=== PATIENT | female | born 1965 ===

== ENCOUNTER 2025-04-10 08:15 | Inpatient (IN) | payer OTHER ==
[~2025-04-10] VITALS: Ht 162.6 cm; Wt 74.4 kg
[2025-04-10 11:20] LABS: BASO % 0.5 % (0.1-1.2); EOS # 0.07 (0.04-0.54); EOS % 1.1 % (0.7-7.0); LYMPH # 1.49 (1.18-3.74); LYMPH % 23.8 % (19.3-53.1); MEAN PLATELET VOLUME 11.80 fl (9.4-12.4); MONO # 0.33 (0.24-0.82); MONO % 5.3 % (4.7-12.5); NEUT # 4.32 (1.56-6.13); NEUT % 69.0 % (34.0-71.1); RED CELL DISTRIBUTION WIDTH 12.7 % (11.6-14.4)
[2025-04-10] MEDS ORDERED: LIPITOR40 MG PO (11:21)
[2025-04-10] MEDS ORDERED: SYNTHROID75 MCG PO (11:21)
[2025-04-10] MEDS ORDERED: ECOTRIN81 MG PO (11:22)
[2025-04-10 11:23] VITALS: BP 102/63
[2025-04-10 11:33] VITALS: BP 118/76
[2025-04-10 11:49] LABS: INR 0.94
[2025-04-10 12:14] LABS: COVID-19 AG NEGATIVE (NEGATIVE)
[2025-04-10 12:22] LABS: ALT/SGPT 41.0 U/L (12-78); AST/SGOT 36.0 U/L (15-37); BILIRUBIN TOTAL 0.43 mg/dL (0.3-1.2); BUN CREA RATIO 18.0 (7.0-25.0); CREATININE SERUM 0.83 mg/dL (0.55-1.02); GFR 70.61; GLOBULINA 3.6 G/DL (2.4-3.5); GLUCOSE FASTING 96.0 mg/dL (65-100); OSMOLALITY SERUM 284.0 MOSM/KG (275-295)
[2025-04-10 12:26] LABS: URINE APPEARANCE Clear; URINE BILIRRUBIN Negative (NEGATIVE); URINE BLOOD Negative; URINE COLOR Yellow; URINE GLUCOSE Negative (NEGATIVE); URINE KETONE Negative (NEGATIVE); URINE LEUKOCYTE Moderate; URINE NITRATE Negative; URINE PROTEIN Negative (NEGATIVE); URINE UROBILINOGEN 0.2 E.U./dl
[2025-04-10 12:27] LABS: URINE BACTERIA 247.2 uL (0.0-1933); URINE EPITHELIAL CELLS 100.7 uL (0.0-38.8); URINE RBC 9.8 uL (0.0-20.8); URINE WBC 83.8 uL (0.0-23.2)
[2025-04-10 12:48] LABS: URINE CAST 0.00 uL (0.0-1.40)
[2025-04-15 14:07] LABS: Glycopro Negative (Negative); HL Negative (Negative); la Negative (Negative); lb Negative (Negative); llb Negative (Negative)
[2025-04-16] MEDS ORDERED: CEFAZOLIN SODIUM 1,000 MG VIAL ONE ×2 (12:16→17:57)
[2025-04-16] MEDS ORDERED: METRONIDAZOLE/SODIUM CHLORIDE 500 MG/100 ML PIGGYBACK IV ONE (12:16)
[2025-04-16] MEDS ORDERED: BUPIVACAINE HCL/MPF 0.5% 30ML VIAL ONE (13:54)
[2025-04-16] MEDS ORDERED: POVIDONE-IODINE 118 ML BOTT TOP ONE (14:23)
[2025-04-16] MEDS ORDERED: HEMOSTATIC MATRIX 1 KIT KIT TOP ONE (15:46)
[2025-04-16] MEDS ORDERED: MORPHINE SULFATE 4 MG/ML CARTRIDGE IV PRN (16:15)
[2025-04-16] MEDS ORDERED: KETOROLAC TROMETHAMINE 30 MG VIAL IV ONE (16:15)
[2025-04-16] MEDS ORDERED: RINGERS SOLUTION,LACTATED 1,000 ML IV SCH (16:15)
[2025-04-16] MEDS ORDERED: OxyCODONE HCL 5 MG TABLET (ROXICODONE) PO PRN (16:15)
[2025-04-16] MEDS ORDERED: SUGAMMADEX SODIUM 200 MG/2 ML VIAL IV ONE (16:30)
[2025-04-16] MEDS ORDERED: SIMETHICONE 125 MG CAPSULE PO SCH (17:00)
[2025-04-16] MEDS ORDERED: METOCLOPRAMIDE HCL 5 MG/ML VIAL IV SCH (17:00)
[2025-04-16] MEDS ORDERED: CEFAZOLIN SODIUM 1,000 MG VIAL IV SCH (17:00)
[2025-04-16] MEDS ORDERED: METOCLOPRAMIDE HCL 5 MG/ML VIAL ONE (17:56)
[2025-04-16] MEDS ORDERED: ACETAMINOPHEN 500 MG GEL..CAP PO SCH (18:00)
[2025-04-16] MEDS ORDERED: KETOROLAC TROMETHAMINE 30 MG VIAL ONE (18:29)
[2025-04-16 18:55] LABS: BASO % 0.2 % (0.1-1.2); EOS # 0.01 (0.04-0.54); EOS % 0.1 % (0.7-7.0); LYMPH # 1.00 (1.18-3.74); LYMPH % 6.7 % (19.3-53.1); MEAN PLATELET VOLUME 11.80 fl (9.4-12.4); MONO # 0.71 (0.24-0.82); MONO % 4.8 % (4.7-12.5); NEUT # 13.09 (1.56-6.13); NEUT % 87.9 % (34.0-71.1); RED CELL DISTRIBUTION WIDTH 12.7 % (11.6-14.4)
[2025-04-16 19:23] LABS: BUN CREA RATIO 16.0 (7.0-25.0); CREATININE SERUM 0.87 mg/dL (0.55-1.02); GFR 66.87; GLUCOSE FASTING 137.0 mg/dL (65-100); OSMOLALITY SERUM 291.0 MOSM/KG (275-295)
[2025-04-16] MEDS ORDERED: FAMOTIDINE/PF 20 MG/2 ML VIAL ONE (20:09)
[2025-04-16] MEDS ORDERED: GABAPENTIN 300 MG CAPSULE PO SCH (21:00)
[2025-04-16] MEDS ORDERED: FAMOTIDINE/PF 20 MG/2 ML VIAL IV PUSH SCH (21:00)
[2025-04-16] MEDS ORDERED: DOCUSATE SODIUM 100MG CAP PO SCH (21:00)
[2025-04-16] MEDS ORDERED: CELECOXIB 200 MG CAPSULE PO SCH (21:00)
[2025-04-16 21:24] VITALS: BP 102/63
[2025-04-17] VITALS: BP 90/60
[2025-04-17 07:52] LABS: BASO % 0.2 % (0.1-1.2); EOS # 0.01 (0.04-0.54); EOS % 0.1 % (0.7-7.0); LYMPH # 1.19 (1.18-3.74); LYMPH % 12.8 % (19.3-53.1); MEAN PLATELET VOLUME 12.20 fl (9.4-12.4); MONO # 0.78 (0.24-0.82); MONO % 8.4 % (4.7-12.5); NEUT # 7.30 (1.56-6.13); NEUT % 78.3 % (34.0-71.1); RED CELL DISTRIBUTION WIDTH 12.8 % (11.6-14.4)
[2025-04-17 08:51] VITALS: BP 99/63
[2025-04-17 08:54] LABS: BUN CREA RATIO 17.0 (7.0-25.0); CREATININE SERUM 0.64 mg/dL (0.55-1.02); GFR 95.31; GLUCOSE FASTING 102.0 mg/dL (65-100); OSMOLALITY SERUM 286.0 MOSM/KG (275-295)
[2025-04-17] MEDS ORDERED: ENOXAPARIN SODIUM 40 MG/0.4 ML SYRINGE SUBCUTANEO SCH (09:00)
[2025-04-17] MEDS ORDERED: LEVOTHYROXINE SODIUM 75 MCG TABLET PO NR (09:30)
[2025-04-17 13:14] VITALS: BP 97/57
[2025-04-17 16:49] VITALS: BP 80/50; O2SAT 97
[2025-04-17 22:02] VITALS: BP 114/76
[2025-04-18 00:49] VITALS: BP 95/63
[2025-04-18 02:26] LABS: BASO % 0.3 % (0.1-1.2); EOS # 0.04 (0.04-0.54); EOS % 0.5 % (0.7-7.0); LYMPH # 1.28 (1.18-3.74); LYMPH % 16.2 % (19.3-53.1); MEAN PLATELET VOLUME 12.20 fl (9.4-12.4); MONO # 0.50 (0.24-0.82); MONO % 6.3 % (4.7-12.5); NEUT # 6.05 (1.56-6.13); NEUT % 76.6 % (34.0-71.1); RED CELL DISTRIBUTION WIDTH 12.9 % (11.6-14.4)
[2025-04-18 02:40] LABS: ALT/SGPT 24.0 U/L (12-78); AST/SGOT 30.0 U/L (15-37); BILIRUBIN TOTAL 0.54 mg/dL (0.3-1.2); BUN CREA RATIO 15.0 (7.0-25.0); CREATININE SERUM 0.74 mg/dL (0.55-1.02); GFR 80.61; GLOBULINA 2.8 G/DL (2.4-3.5); GLUCOSE FASTING 110.0 mg/dL (65-100); OSMOLALITY SERUM 289.0 MOSM/KG (275-295)
[2025-04-18] MEDS ORDERED: LEVOTHYROXINE SODIUM 75 MCG TABLET PO SCH (06:00)
[2025-04-18 08:00] VITALS: BP 120/74; O2SAT 100
== END 2025-04-18 08:59 | disposition home or self-care (01) | DRG 743 ==
LOC: SURH 04-16 08:15 → O/R 04-16 13:00 → OB/GYN 04-16 13:00 → SURH 04-16 20:00 → OB/GYN 04-18 08:59
PROVIDERS: Obstetrics & Gynecology; ADMIT Obstetrics & Gynecology Gynecologic Oncology; ATTEND Obstetrics & Gynecology Gynecologic Oncology
PROC: 0DBU0ZZ Excision of Omentum, Open Approach (ICD-10-PCS; 2025-04-16)
PROC: 0UT70ZZ Resection of Bilateral Fallopian Tubes, Open Approach (ICD-10-PCS; 2025-04-16)
PROC: 0UT20ZZ Resection of Bilateral Ovaries, Open Approach (ICD-10-PCS; 2025-04-16)
PROC: 07BC0ZZ Excision of Pelvis Lymphatic, Open Approach (ICD-10-PCS; 2025-04-16)
PROC: 3E1M38Z Irrigation of Peritoneal Cavity using Irrigating Substance, Percutaneous Approach (ICD-10-PCS; 2025-04-16)
PROC: 0UT90ZZ Resection of Uterus, Open Approach (ICD-10-PCS; principal; 2025-04-16 20:00)
DX: D25.1 Intramural leiomyoma of uterus (principal); D25.2 Subserosal leiomyoma of uterus; D36.0 Benign neoplasm of lymph nodes; D27.1 Benign neoplasm of left ovary; N72 Inflammatory disease of cervix uteri